=== PATIENT | female | born 1950 ===

== ENCOUNTER 2016-06-23 04:11 | Emergency (ER) | payer OTHER ==
[~2016-06-23] VITALS: Ht 165.1 cm; Wt 79.4 kg
[~2016-06-23 04:11] MED LIST: ABILIFY 5MG5 MG PO; CALCIUM + D 6001 TAB PO; DULOXETINE60 MG PO; GLIMEPIRIDE4 MG PO; LANTUS100 U/ML SC; LEVOTHYROXINE0.05 MG PO; NUVIGIL250 MG PO; PREDNISONE10 MG PO; REQUIP1 MG PO; TRADJENTA5 MG PO
--- NOTE | 2016-06-23 04:48 | ED NOSE COMPLAINT ---
History of Present Illness General Chief Complaint: Epistaxis/Nasal Foreign Body Stated Complaint: EPISTAXIS X 3 HOURD Source: patient Exam Limitations: no limitations Vital Signs & Intake/Output Vital Signs & Intake/Output Vital Signs Date Time Temp Pulse Resp B/P Pulse O2 O2 Flow FiO2 Ox Delivery Rate 06/23 0635 97.2 88 18 112/74 97 Room Air 06/23 0442 97.2 94 16 108/74 97 Room Air Allergies Coded Allergies: NO KNOWN ALLERGIES (04/22/14) Reconcile Medications Amoxicillin/Potassium Clav (Augmentin 875-125 Tablet) 875 MG-125 MG TABLET 1 TAB PO BID nose bleed Aripiprazole (Abilify) 5 MG TABLET 1 TAB PO DAILY DEPRESSION (Reported) Armodafinil (Nuvigil) 250 MG TABLET 1 TAB PO QAM PRN KEEPS AWAKE (Reported) Calcium/Vitamin D (Calcium + D) (Unknown Strength) TAB (Unknown Dose) PO BID SUPPLEMENT (Reported) DULOXETINE HCL (Duloxetine) 60 MG CAPSULE.DR 1 TAB PO DAILY DEPRESSION ( Reported) Insulin Glargine, Recombinan (Lantus) 100 U/ML JACKELINE 15 UNITS SC QPM DIABETES ( Reported) Levothyroxine Sodium 50 MCG TABLET 1 TAB PO DAILY AC THYROID (Reported) Linagliptin (Tradjenta) 5 MG TABLET 1 TAB PO DAILY DIABETES (Reported) Prednisone (Unknown Strength) TABLET (Unknown Dose) PO TID LOW PLATELETS ( Reported) ROPINIROLE HCL (Requip) 1 MG TABLET 1 TAB PO BID PRN RESTLESS LEGS (Reported) Triage Note: PT TO ED WITH COMPLAINTS OF A NOSE BLEED SINCE 2 AM THIS MORNING. PT STATES SHE HAD A NOSE BLEED THE NIGHT BEFORE BUT IT DID NOT LAST THIS LONG. PT STATES SHE PICKED A CLOT OUT OF HER NOSE THIS AM AND THAT INITIATED THE BLEEDING THIS MORNING. PT ARRIVES TO ED WITH A GROCERY BAG FULL OF USED BLOODY TISSUES. PT HAS HISTORY OF ITP. Triage Nurses Notes Reviewed? yes Onset: Gradual Duration: hour(s): Timing: recent history Injury Environment: home Severity: moderate Modifying Factors: Improves With: rest. HPI: 65 yo woman presents with right nare bleeding x 3 hours. "It wouldn't stop, I was passing clots." She notes no blood thinners other than aspirin. She notes no trauma, no lightheadedness. She is otherwise well. Past History Travel History Traveled to [place] past 21 day No Medical History Any Pertinent Medical History? see below for history Cardiovascular: hypertension Hepatic: cirrhosis Endocrine: diabetes Blood Disorders: ITP, thrombocytopenia History of MRSA: No History of VRE: No History of CDIFF: No Surgical History Surgical History: none Psychosocial History What is your primary language Irish Tobacco Use: Never used ETOH Use: denies use Family History Family History, If Any: MOTHER FH: lung cancer FATHER FH: cancer FATHER Hx Contributory? No Review of Systems Review of Systems Constitutional: Reports: no symptoms. EENTM: Reports: no symptoms. Respiratory: Reports: no symptoms. Cardiovascular: Reports: no symptoms. GI: Reports: no symptoms. Genitourinary: Reports: no symptoms. Musculoskeletal: Reports: no symptoms. Skin: Reports: no symptoms. Neurological/Psychological: Reports: no symptoms. Hematologic/Endocrine: Reports: no symptoms. Immunologic/Allergic: Reports: no symptoms. All Other Systems: Reviewed and Negative Physical Exam Physical Exam General Appearance: well developed/nourished, mild distress Head: atraumatic Eyes: Bilateral: PERRL, EOMI. Ears: Bilateral: canal normal. Nose: active bleeding, active bleeding right nare... slow ooze. Mouth/Throat: normal mouth inspection, pharynx normal Neck: normal inspection, supple Cardiovascular/Respiratory: normal breath sounds, regular rate/rhythm Back: normal inspection Neurologic/Psych: awake, alert, oriented x 3, normal mood/affect Skin: intact, normal color, warm/dry Progress Differential Diagnoses I considered the following diagnoses in my evaluation of the patient: anterior vs posterior bleeding Plan of Care: nasal rocket placed in right nare with excellent result. Initial ED EKG: none Departure Departure Disposition: HOME OR SELF CARE Condition: Stable Clinical Impression Primary Impression: Epistaxis Referrals: SUSANNA KEATING APRN (PCP/Family) Departure Forms: Customer Survey General Discharge Information Prescriptions: Current Visit Scripts Amoxicillin/Potassium Clav (Augmentin 875-125 Tablet) 1 TAB PO BID #20 TAB Comments right posterior nasal rocket placed without problem... pt observed x 1 hour... bleeding well controlled... pt referred to ent.... wrote for augmentin.
[2016-06-23] MEDS ORDERED: AUGMENTIN 875-1 EACH PO (05:14)
[2016-06-23 06:35] VITALS: BP 112/74
== END 2016-06-23 06:45 ==
LOC: ERH 04:11
DX: R04.0 Epistaxis (principal)